=== PATIENT | female | born 1970 ===

== ENCOUNTER 2017-04-16 18:50 | Emergency (ER) | payer SELFPAY ==
[2017-04-16 19:18] VITALS: RESP 20
--- NOTE | 2017-04-16 20:06 | C.PDOC ---
History Of Present Illness Patient is a 46 y/o female who presents to the ED with a complaint of pain in the left calf since last week. 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 Reports to have met with Dr. Cesar Chance last who gave a prescription for US as outpatient, but patient has not gone yet. Patient admits to using Tylenol for pain to no relief. Denies swelling, redness, or bruising. No other physical complaints at this time. Time Seen by Provider: 04/16/17 19:23 Chief Complaint (Nursing): Lower Extremity Problem/Injury History Per: Patient History/Exam Limitations: no limitations Onset/Duration Of Symptoms: Days (last week ) Current Symptoms Are (Timing): Still Present Recent travel outside of the [place]: No Additional History Per: Patient Past Medical History Reviewed: Historical Data, Nursing Documentation, Vital Signs Vital Signs: Last Vital Signs Temp 97.8 F 04/16/17 19:13 Pulse 70 04/16/17 19:13 Resp 20 04/16/17 19:13 BP 153/86 H 04/16/17 19:13 Pulse Ox 100 04/16/17 20:12 - Medical History PMH: No Chronic Diseases Surgical History: No Surg Hx Family History: States: No Known Family Hx - Social History Hx Alcohol Use: No Hx Substance Use: No - Immunization History Hx Tetanus Toxoid Vaccination: No Hx Influenza Vaccination: No Hx Pneumococcal Vaccination: No Review Of Systems Cardiovascular: Negative for: Chest Pain, Edema (to left calf) Respiratory: Negative for: Shortness of Breath Musculoskeletal: Positive for: Leg Pain (pain in left calf) Skin: Negative for: Bruising Physical Exam - Physical Exam Appears: Well, Non-toxic, No Acute Distress Skin: Normal Color, Warm, Dry Head: Atraumatic, Normacephalic Oral Mucosa: Moist Chest: Symmetrical Cardiovascular: Rhythm Regular, No Murmur Respiratory: Normal Breath Sounds, No Rales, No Rhonchi, No Stridor Gastrointestinal/Abdominal: Soft, No Tenderness Extremity: Tenderness (muscular tenderness on posterior left portion of calf) Neurological/Psych: Oriented x3, Normal Speech, Normal Cognition ED Course And Treatment - Laboratory Results Result Diagrams: 04/16/17 20:47 Lab Interpretation: Normal O2 Sat by Pulse Oximetry: 100 Pulse Ox Interpretation: Normal Reevaluation Time: 21:22 Reassessment Condition: Unchanged Disposition Counseled Patient/Family Regarding: Studies Performed, Diagnosis, Need For Followup, Rx Given - Disposition Referrals: Cesar Chance Jr., MD [Medical Doctor] - Disposition: HOME/ ROUTINE Disposition Time: 21:22 Condition: STABLE Additional Instructions: Take Advil or Tylenol as needed for pain. Prescriptions: Cyclobenzaprine [Flexeril] 10 mg PO TID PRN #14 tab PRN Reason: Muscle Spasm Instructions: Musculoskeletal Pain (ED) Forms: [employer] (Turkmen) Print Language: FRENCH - Clinical Impression Clinical Impression: Pain of left calf - Scribe Statement The provider has reviewed the documentation as recorded by the Scribe Courtney Villagomez All medical record entries made by the Scribe were at my direction and personally dictated by me. I have reviewed the chart and agree that the record accurately reflects my personal performance of the history, physical exam, medical decision making, and the department course for this patient. I have also personally directed, reviewed, and agree with the discharge instructions and disposition.
[2017-04-16 20:54] LABS: BASO # 0.1 K/uL (0.0-0.2); BASO % 1.1 % (0.0-2.0); EOS # 0.2 K/uL (0.0-0.7); EOS % 2.2 % (0.0-4.0); HEMATOCRIT 37.4 % (34.0-47.0); LYMPH # 3.5 K/uL (1.0-4.3); LYMPH % 39.3 % (20.0-40.0); MEAN CELL VOLUME 86.9 fL (81.0-99.0); MEAN CORPUSCULAR HEMOGLOBIN 30.8 pg (27.0-31.0); MEAN CORPUSCULAR HGB CONC 35.4 g/dL (33.0-37.0); MEAN PLATELET VOLUME 9.6 fL (7.2-11.7); MONO # 0.6 K/uL (0.0-0.8); MONO % 6.5 % (0.0-10.0); NRBC % 0.2 % (0.0-2.0); RED CELL DISTRIBUTION WIDTH 12.7 % (11.5-14.5); WHITE BLOOD COUNT 8.8 K/uL (4.8-10.8)
[2017-04-16 21:40] VITALS: BP 135/86; PULSE 65; TEMP 98.1; O2SAT 99
== END 2017-04-16 21:39 | disposition home or self-care (01) ==
LOC: C.ER 18:50
DX: M79.662 Pain in left lower leg (principal)

== ENCOUNTER 2018-07-03 14:44 | Outpatient (CLI) | payer OTHER | END 2018-07-03 14:45 | disposition home or self-care (01) | LOC: C.RADIC 14:44 ==

== ENCOUNTER 2018-09-10 07:47 | Outpatient (CLI) | payer OTHER | END 2018-09-10 07:48 | disposition home or self-care (01) | LOC: C.USIC 07:47 ==